=== PATIENT | male | born 2000 | race Caucasian/White ===

== ENCOUNTER 2020-04-20 11:31 | Emergency (ER) | payer BC ==
[~2020-04-20] VITALS: Ht 185.4 cm; Wt 72.6 kg
[2020-04-20 11:41] VITALS: BP_SYST 121
[2020-04-20] MEDS ORDERED: NAPR-688 PO (13:28)
[2020-04-20 13:48] VITALS: BP_SYST 121
== END 2020-04-20 13:48 | disposition home or self-care (01) ==
LOC: SED 11:31
DX: S00.33XA Contusion of nose, initial encounter (principal); V18.4XXA Pedal cycle driver injured in noncollision transport accident in traffic accident, initial encounter; Y93.89 Activity, other specified; Y92.89 Other specified places as the place of occurrence of the external cause; Y99.8 Other external cause status
CPT/HCPCS: 70160-TC; 99283

== ENCOUNTER 2023-03-14 07:51 | Emergency (ER) | payer BC ==
[~2023-03-14] VITALS: Ht 188 cm; Wt 86.2 kg
[~2023-03-14 07:51] MED LIST: NAPR-688 PO
[2023-03-14 07:59] VITALS: BP_SYST 129; PULSE 99; RESP 20; TEMP 98.3; O2SAT 97
[2023-03-14 08:38] LABS: COVID19 ANTIGEN SOFIA FIA NEGATIVE (NEGATIVE)
[2023-03-14 08:38] LABS: BASOPHILS % (AUTO) 0.3 % (0.0-2.0); EOSINOPHILS % (AUTO) 0.4 % (0.0-4.0); HEMATOCRIT 48.5 % (36-54); HEMOGLOBIN 15.7 g/dL (14.0-18.0); LYMPHOCYTES # (AUTO) 0.8 K/uL (1.0-5.5); LYMPHOCYTES % (AUTO) 9.5 % (20.5-51.5); MEAN CORPUSCULAR HEMOGLOBIN 30 pg (27-31); MEAN CORPUSCULAR HGB CONC 32 % (32-36); MEAN CORPUSCULAR VOLUME 93 fL (79.0-98.0); MONOCYTES % (AUTO) 11.5 % (1.7-9.3); NEUTROPHILS # (AUTO) 6.9 K/uL (1.8-7.7); NEUTROPHILS % (AUTO) 78.3 % (40.0-70.0); PLATELET COUNT (AUTO) 228 K/uL (130-430); RED CELL DISTRIBUTION WIDTH 13.7 % (9.0-15.0); WHITE BLOOD COUNT (AUTO) 8.8 K/uL (4.8-10.8)
[2023-03-14 08:45] LABS: INFLUENZA TYPE A Negative (NEGATIVE); INFLUENZA TYPE B NEGATIVE (NEGATIVE)
[2023-03-14 08:45] LABS: CALCIUM 10.1 mg/dL (8.4-11.0); CREATININE 1.12 mg/dL (0.55-1.30); POTASSIUM 4.2 mmol/L (3.5-5.1)
[2023-03-14 08:50] LABS: ALBUMIN 4.4 g/dL (3.4-4.8); BILIRUBIN,DIRECT 0.3 mg/dL (0.0-0.3); TOTAL BILIRUBIN 1.4 mg/dL (0.0-1.0); TOTAL PROTEIN, SERUM 8.2 g/dL (6.4-8.3)
[2023-03-14] MEDS ORDERED: DOXY100C5 PO (09:21)
[2023-03-14] MEDS ORDERED: VALA500T PO (09:21)
[2023-03-14 09:48] VITALS: BP_SYST 129; PULSE 99; RESP 20; TEMP 98.3; O2SAT 97
== END 2023-03-14 09:50 | disposition home or self-care (01) ==
LOC: SED 07:51
DX: J20.9 Acute bronchitis, unspecified (principal); R50.9 Fever, unspecified; R05.9 Cough, unspecified; Z79.899 Other long term (current) drug therapy; Z20.822 Contact with and (suspected) exposure to COVID-19
CPT/HCPCS: 36415; 80048; 80076; 83690; 85025; 99283

== ENCOUNTER 2023-03-16 10:29 | Emergency (ER) | payer BC ==
[~2023-03-16] VITALS: Ht 188 cm; Wt 86.2 kg
[~2023-03-16 10:29] MED LIST changes: +DOXY100C5 PO; +VALA500T PO
[2023-03-16 10:30] VITALS: BP_SYST 134; PULSE 75; RESP 17; TEMP 97.8; O2SAT 97
[2023-03-16] MEDS ORDERED: PRED20TA PO (10:58)
[2023-03-16 11:18] VITALS: BP_SYST 121; PULSE 78; RESP 16; TEMP 97.8; O2SAT 98
== END 2023-03-16 11:10 | disposition home or self-care (01) ==
LOC: SED 10:29
DX: J40 Bronchitis, not specified as acute or chronic (principal); R05.9 Cough, unspecified; Z20.2 Contact with and (suspected) exposure to infections with a predominantly sexual mode of transmission; Z79.899 Other long term (current) drug therapy
CPT/HCPCS: 36415; 87491; 99283